=== PATIENT | male | born 1940 | race African-American/Black ===

== ENCOUNTER 2016-11-28 17:47 | Inpatient (IN) ==
[2016-11-28] MEDS ORDERED: cefTRIAXone 1,000 MG in SODIUM CHLORIDE 0.9% 100 ML IV STA (17:56)
[2016-11-28] MEDS ORDERED: ALBUTEROL/IPRATROPIUM 3 ML NEB RESP TX STA (17:56)
[2016-11-28] MEDS ORDERED: methylPREDNISolone SOD SUC 125 MG/2 ML VIAL ONE (17:56)
[2016-11-28] MEDS ORDERED: methylPREDNISolone SOD SUC 125 MG/2 ML VIAL IV STA (17:56)
[2016-11-28] MEDS ORDERED: ALBUTEROL 2.5 MG/3 ML NEB RESP TX SCH (18:00)
--- NOTE | 2016-11-28 18:01 | Emergency Department Note ---
Arrival - Arrival Chief Complaint: Shortness of Breath Stated Complaint: SOB ED Nursing Triage Note: Patient to ER 5 via w/c. Lisaplaint of change in level of consciousness. Family states that patient was sitting in his chair and became less responsive and short of breath. Mode of Arrival: Wheelchair Limitations: No Limitations Source: Family Time Seen by Provider: 11/28/16 17:56 - History of Present Illness HPI Narrative: This 76-year-old black male well known to the ER with a history of metastatic carcinoma and orders to not be intubated presents with a rather abrupt and sudden onset of change in consciousness soon followed by severe dyspnea and increased work of breathing. The patient currently is panting to breathe but appears to be alert and oriented at this time. He does state between breaths that he has no chest pain. The states he has had a good day laughing and joking and visiting with friends without any indication that he would so suddenly turn for the worse. Onset (ago): hour(s) (Onset of symptoms within the last hour) Allergies/Adverse Reactions: Allergies Allergy/AdvReac Type Severity Reaction Status Date / Time No Known Allergies Allergy Verified 09/24/16 19:23 Home Medications: Home Medications Medication Instructions Recorded Confirmed Type Meloxicam 7.5 mg PO DAILY PRN 09/24/16 09/24/16 History Review of System - Review of System 12 point system: reviewed and no additional remarkable complaints except as stated - Review of System Respiratory: Present: as per HPI Cardiovascular: Present: as per HPI Medical,Surgical,& Family Hx - Medical History Respiratory: History of: Lung Cancer (With brain mets) - Social History Smoking Status: Never smoker Exam Physical Examination: GENERAL: Cachectic black male in moderate respiratory distress. HEENT: Normocephalic. No trauma. Moist mucous membranes. EOMI. PERRLA. ENT NML NECK: Supple. No adenopathy. CARDIAC: Regular. No murmurs. Heart rate 135 CHEST: Clear to auscultation. No respiratory distress. O2 sat 54% ABDOMEN: Soft. Nontender. Active bowel sounds. EXTREMITIES: No trauma. Normal ROM. No pedal edema. SKIN: No diaphoresis. No rash. NEURO: Alert. Motor, sensory, vibratory intact. No focal deficits. Vital Signs: Vital Signs Temperature 98.6 F 11/28/16 17:59 Pulse Rate 132 H 11/28/16 18:43 Respiratory Rate 28 H 11/28/16 18:43 Blood Pressure 134/84 11/28/16 17:59 O2 Sat by Pulse Oximetry 100 11/28/16 18:10 Course - Reevaluation(s) Reevaluation #1: I have advised the patient's family of admission for respiratory support for the time being given his labored efforts. - Consultations Consultation #1: Discussed with Dr. Rothman who will admit for Dr. Phillips Results - Labs CBC & BMP: 11/28/16 17:54 11/28/16 17:54 Labs: I have reviewed the laboratory noted the gross normality excepting for a bump in troponin. - Impressions EKG: Sinus tachycardia at 132 with normal [place] interval and QRS duration. Diffuse nonspecific ST changes. Possible old septal VA versus poor R-wave progression anteriorly. - Diagnostic Findings Procedure: Chest x-ray: image reviewed by me, report reviewed by me (Unchanged on interval comparison with slight enlargement and lung mass) Disposition Clinical Impression: Metastatic lung cancer, COPD Case discussed with: patient's family Disposition: Still a Patient Condition: Guarded Time of Disposition: 19:39
[2016-11-28] MEDS ORDERED: ALBUTEROL NEB SOLN 5 MG/ML 20 ML/BOTTLE CONT NEB STA (18:03)
[2016-11-28 18:09] LABS: Basophils % 0.2 % (0.0-0.8); Eosinophils # 0.1 10*3/uL (0.0-0.87); Hematocrit 33.7 VOL% (42.0-52.0); Hemoglobin 10.1 GM/DL (14.0-18.0); Immature Granulocytes % 0.4 %; Immature Granulocytes Absolute 0.04 #; Lymphocytes # 2.3 10*3/uL (1.4-4.0); Lymphocytes % 21.5 % (21.2-54.2); Mean Corpuscular Hemoglobin 24 PG (27-34); Mean Corpuscular Volume 78.9 FL (87-102); Monocytes # 0.2 10*3/uL (0.11-0.8); Monocytes % 1.7 % (1.7-12.7); Neutrophils % 75.2 % (38.7-73.9); Platelet Count 410 T/CUMM (130-400); Red Blood Count 4.27 MC/CUMM (3.8-5.5); Red Cell Distribution Width 22.3 % (9.3-17.3); White Blood Count 10.7 T/CUMM (4-12)
[2016-11-28 18:15] LABS: INR 1.1; PT Patient Result 11.4 SECS; Partial Thromboplastin Time 28.9 SECS (0-40)
[2016-11-28 18:23] LABS: Alanine Aminotransferase 28 U/L (16-61); Alkaline Phosphatase 135 U/L (45-117); Aspartate Amino Transferase 74 U/L (0-37); Calcium 8.5 MG/DL (8.5-10.1)
[2016-11-28 18:24] LABS: Albumin 2.3 G/DL (3.4-5.0); Bilirubin,Total < 0.39 MG/DL (0.2-1.0); Blood Urea Nitrogen 11 MG/DL (7-18); Glucose 209 MG/DL (74-106); Osmolality,Calculated 281.5 MOS/KG (273-304); Potassium 3.7 MMOL/L (3.5-5.1); Sodium 139 MMOL/L (136-145); Total Protein 7.6 G/DL (6.4-8.3)
[2016-11-28 18:25] LABS: Troponin I Only 0.597 NG/ML (0.00-0.045)
--- NOTE | 2016-11-28 18:32 | XRay Report ---
PA and lateral chest. Indication: Shortness of breath. Comparison: September 24, 2016. The heart is normal in size. Again noted is a very large mass present in the left midlung field, now measuring 12.7 cm. The right lung is clear. No pneumothorax. No pleural effusion. Impression: Very large left pulmonary mass increased in size minimally increased in size from the September exam. PROCEDURE INTERPRETED AT [facility] DEPARTMENT OF RADIOLOGY Final Report Signed by: Dr. Emily Reynoso
[2016-11-28] MEDS ORDERED: TERBUTALINE 1 MG/1 ML VIAL SUBCUT ONE (19:03)
[2016-11-28] MEDS ORDERED: cefTRIAXone 1,000 MG VIAL ONE (19:03)
[2016-11-28] MEDS: TERBUTALINE 1 MG/1 ML VIAL SUBCUT SCH ×2 (19:21→20:00)
[2016-11-28] MEDS ORDERED: ONDANSETRON 4 MG/2 ML VIAL IV PRN (19:41)
[2016-11-28] MEDS ORDERED: ALBUTEROL/IPRATROPIUM 3 ML NEB RESP TX PRN (19:41)
[2016-11-28] MEDS: HYDROmorphone 2 MG/1 ML VIAL IV PRN (22:59)
[2016-11-29 05:48] LABS: CKMB % 3.3 %
[2016-11-29 05:51] LABS: Troponin I Only 2.1 NG/ML (0.00-0.045)
[2016-11-29] MEDS: HYDROmorphone 2 MG/1 ML VIAL IV PRN (06:38)
[2016-11-29 07:50] VITALS: BP 92/58
--- NOTE | 2016-11-29 08:04 | EKG Report ---
Stationary ECG Study [facility] ER Test Date: 11/28/2016 5:58:07 PM Pat Name: RASTA CHILDRESS Department: Room: 421 Gender: M Shoe Handler: BRAULIO Rankin : 1940 Requested by: Americo Phan Order Number: [id number] Reading MD: ALEXANDRE HASKINS Intervals Dinosaur Rate: 132 P: 101 MO: 166 QRS: 50 QRSD: 90 T: 25 QT: 379 QTc: 457 Interpretive Statements SINUS TACHYCARDIA SEPTAL MYOCARDIAL INFARCTION, OF INDETERMINATE AGE Electronically Signed On 11-29-16 09:26:59 CDT by ALEXANDRE HASKINS [email or web address]
[2016-11-29] MEDS ORDERED: LORazepam 2 MG/1 ML VIAL IV PRN (09:10)
[2016-11-29] MEDS ORDERED: levETIRAcetam 500 MG TABLET PO SCH (09:30)
--- NOTE | 2016-11-29 09:53 | Family Practice History&Phys ---
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 Shortness of breath, oxygen and DuoNeb, comfort measures only. Seizures, on Keppra, IV Ativan added when necessary. Seizure and fall precautions. Current Visit: Yes (2) Brain metastases Status: Acute Current Visit: Yes (3) Former smoker Status: Chronic Current Visit: Yes (4) GERD (gastroesophageal reflux disease) Status: Chronic Current Visit: Yes History of Present Illness Chief complaint: Shortness short of breath and less responsive History of present illness: Mr. Sargent is a 76 year old male Noted from the ER H&P,pt has before my H& P was done, Admitted from the ER for abrupt, sudden onset of shortness of breath and less responsive, had increased work of breathing. Patient was not on hospice. Had history of seizures since 3 months, on Keppra. 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 Patient admitted with comfort measures only. Pt seen by me at [facility] clinic on 11/14/16, reviewed [facility], Home Medications Medication Instructions Recorded Confirmed Type Pantoprazole Tab [Protonix Tab] 40 mg PO DAILY 11/29/16 11/29/16 History levETIRAcetam TAB [Keppra Tab] 1,000 mg PO BID 11/29/16 11/29/16 History Allergies Allergy/AdvReac Type Severity Reaction Status Date / Time No Known Allergies Allergy Verified 09/24/16 19:23 ROS unobtainable: due to mental status - Constitutional Constitutional: Present: as per HPI - EENT Eyes: Present: as per HPI - Respiratory Respiratory: Present: as per HPI - Gastrointestinal Gastrointestinal: Present: as per HPI - Genitourinary Genitourinary: Present: as per HPI - Musculoskeletal Musculoskeletal: Present: as per HPI - Neurological Neurological: Present: as per HPI - Psychiatric Psychiatric: Present: as per HPI - Endocrine Endocrine: Present: as per HPI Medical,Surgical,& Family Hx - Medical History Neurology: History of: Seizures (last one in november) Respiratory: History of: Lung Cancer (adenocarcinoma with mucinous feature of left hilar mass, With brain mets) Other: History of: Cancer (Lung cancer with brain mets) - Surgical History Cardiac Surgeries: Patient Denies: Femoral-Popliteal Bypass Graft, Cardiac Catheterization, Cardiac Surgery, Carotid Endarterectomy, Internal Defibrillator, Vascular Access Devices Neurologic Surgeries: Patient denies: Neurologic Surgery HEENT Surgeries: Patient denies: Carotid Endarterectomy Abdominal Surgeries: Patient denies: Abdominal Surgery, Splenectomy Reproductive Surgeries: Patient denies;: Genitourinary Surgery - Social History Smoking Status: Former smoker Frequency of Alcohol Use: Rarely Type of Drug Use: None Exam - Constitutional Vitals: Period Temp Pulse Resp BP Sys/Estes Pulse Ox Last 24 Hr 97.9 F-100.4 F 108-133 14-35 92-134/53-85 54-100 Exam: Patient has before H&P exam could be done, Below are findings of ER PHYSICIAN, at the time of admission, GENERAL: Cachectic black male in moderate respiratory distress. HEENT: Normocephalic. No trauma. Moist mucous membranes. EOMI. PERRLA. ENT NML NECK: Supple. No adenopathy. CARDIAC: Regular. No murmurs. Heart rate 135 CHEST: Clear to auscultation. No respiratory distress. O2 sat 54% ABDOMEN: Soft. Nontender. Active bowel sounds. EXTREMITIES: No trauma. Normal ROM. No pedal edema. SKIN: No diaphoresis. No rash. NEURO: Alert. Motor, sensory, vibratory intact. No focal deficits. Results - Labs CBC & BMP: 11/28/16 17:54 11/28/16 17:54 Lab Results: I have reviewed the past 24 hour labs - Impressions Chest x-ray, Again noted is a very large mass present in the left midlung field, now measuring 12.7 cm. The right lung is clear. No pneumothorax. No pleural effusion. Impression: Very large left pulmonary mass increased in size minimally increased in size from the September exam.
[2016-11-29] MEDS ORDERED: SODIUM CHLORIDE 0.9% 1,000 ML IV SCH (10:00)
--- NOTE | 2016-11-29 12:27 | Discharge Summary ---
Hospital Course - Hospital Course Hospital Course: Patient admitted from the ER for on 11/28/2016, for shortness of breath and less responsiveness. Patient had history of seizures," one episode of seizure this morning. Keppra was restarted and Ativan was added. Patient had history of adenocarcinoma of left lung with brain metastasis, on comfort measures only. Patient was declared at 1153 on 11/29/2016. - Cause of Cause of : adenocarcinoma of the left lung with brain metastasis Discharge Plan - Discharge Data Disposition: Condition at Discharge: - Discharge Medications No Action levETIRAcetam TAB [Keppra Tab] 1,000 mg PO BID Pantoprazole Tab [Protonix Tab] 40 mg PO DAILY - Follow Up or Referral - Forms/Instructions Exam - Constitutional Vitals: Period Temp Pulse Resp BP Sys/Estes Pulse Ox Last 24 Hr 97.9 F-100.4 F 108-133 14-35 92-134/53-85 54-100 Exam: Called to see the patient for unresponsiveness, family present at the bedside. On exam, the patient did not respond to verbal or physical stimulus. No spontaneous respirations noted, few pupils are fixed and dilated. Absent heart and breath sounds. Absent peripheral pulses. Time of , 1153 on 11/29/2016. Family notified. Autopsy declined by the , Mrs. Sargent Discharge Results Procedures and tests throughout hospitalization: Pending Orders 11/28/16 10:34 Blood Culture Stat 11/29/16 09:39 Levetiracetam (Keppra) Stat Labs on day of discharge: Labs from last 24 hours 11/29/16 11/28/16 11/28/16 04:20 21:47 17:54 WBC RBC Hgb Hct MCV MCH MCHC RDW Plt Count MPV Neut % (Auto) Lymph % (Auto) [place] % (Auto) Eos % (Auto) Baso % (Auto) Neut # (Auto) Lymph # (Auto) [place] # (Auto) Eos # (Auto) Baso # (Auto) Immature Gran % Nucleated RBC % Immature Gran # Nucleated RBCs # INR PT Patient/Control Mix Circ Anticoag PTT Sodium 139 Potassium 3.7 Chloride 103 Carbon Dioxide 20 L Anion Gap 19.7 H BUN 11 Creatinine 1.30 GFR Calculation 52 BUN/Creatinine Ratio 8.00 Glucose 209 H Calculated Osmolality 281.5 Lactic Acid 4.6 H Calcium 8.5 Total Bilirubin < 0.39 AST 74 H ALT 28 Alkaline Phosphatase 135 H Total Creatine Kinase 201 204 CK-MB (CK-2) 6.6 H 1.9 CK and CKMB Interp 3.3 Troponin I 2.100 H D 0.597 H Total Protein 7.6 Albumin 2.3 L Globulin 5.3 H Albumin/Globulin Ratio 0.4 L 11/28/16 11/28/16 17:54 17:54 WBC 10.7 RBC 4.27 Hgb 10.1 L Hct 33.7 L MCV 78.9 L MCH 24 L MCHC 30.0 L RDW 22.3 H Plt Count 410 H MPV 9.0 L Neut % (Auto) 75.2 H Lymph % (Auto) 21.5 [place] % (Auto) 1.7 Eos % (Auto) 1.0 Baso % (Auto) 0.2 Neut # (Auto) 8.0 H Lymph # (Auto) 2.3 [place] # (Auto) 0.2 Eos # (Auto) 0.1 Baso # (Auto) 0.0 Immature Gran % 0.4 Nucleated RBC % 0.0 Immature Gran # 0.04 Nucleated RBCs # 0.00 INR 1.1 PT Patient/Control Mix 11.4 Circ Anticoag PTT 28.9 Sodium Potassium Chloride Carbon Dioxide Anion Gap BUN Creatinine GFR Calculation BUN/Creatinine Ratio Glucose Calculated Osmolality Lactic Acid Calcium Total Bilirubin AST ALT Alkaline Phosphatase Total Creatine Kinase CK-MB (CK-2) CK and CKMB Interp Troponin I Total Protein Albumin Globulin Albumin/Globulin Ratio DS: Provider Date of admission: 11/28/16 19:39 Primary care physician: . No PCP Attending physician on admission: Mariam Phillips MD Consults: 11/28/16 22:25 Consult to Dietitian [CONS] Routine Reason for Dietitian: Dietary Consult Consult to Pastoral Services [CONS] Routine Comment: Pastoral Screen: Request Public Information Director Visit Pastoral Screen Source of Request: Other Other Source Requesting: Nursing Discharging clinician: Mariam Phillips MD
--- NOTE | 2016-11-30 13:22 | Physician Query Form ---
CLICK EDIT DOCUMENT TO SELECT QUERY ANSWER --> OK --> SIGN Sahra Araiza RN Clinical House Decorator W) [phone] (f) [phone] [email or web address]: Make your selection(s) from the choices in EACH section by typing an "x" and enter comments in the comment section. Please use your independent medical judgment in providing your response. This request does not imply that any particular answer is desired or expected. CLINICAL INDICATORS: (Providers should not edit this section) Based on documentation in ER record of "severe dyspnea and increased work of breathing", O2 sat=54%. Pt. placed on 15L O2 via non-rebreather mask. Respiration=34 and shallow. Respiration effort labored with pursed lip, nasal flaring, and accessory muscle use. If possible, please further clarify the type and acuity of respiratory diagnosis : ACUITY: ( ) Acute ( ) Chronic ( ) Acute on Chronic TYPE: ( X) Respiratory failure with hypoxia ( ) Respiratory failure with hypercapnia ( ) Respiratory Arrest ( ) Postprocedural/postoperative respiratory failure ( ) Respiratory Insufficiency ( ) ARDS (Adult/Acute Respiratory Distress Syndrome) ( ) Other, please specify: ( ) Clinically unable to determine Recognized criteria for respiratory failure PH <7.35 or >7.45 PO2 <60 PCO2 >50 RR >24 O2 Sat <90% on RA or <95% on O2 Use of accessory muscles Unable to speak in full sentences Intubation is not required COMMENTS: PLEASE ALSO DOCUMENT RESPONSE IN PROGRESS NOTES AND/OR DISCHARGE SUMMARY Use of terms such as suspected, likely, or probable (associated with a specific diagnosis that is being evaluated, monitored, or treated as if it exists) are acceptable and can be restated in the discharge summary if not ruled out. MTDD
== END 2016-11-29 11:53 | disposition expired | DRG 180 ==
LOC: N.ED 17:47 → N.EDINP 19:39 → N.4E 20:07
PROVIDERS: ADMIT Family Medicine; ATTEND Family Medicine